=== PATIENT | male | born 1970 | race Caucasian/White ===

== ENCOUNTER → 2020-03-11 | Outpatient (CLI) | payer MEDICARE ==
--- NOTE | 2020-03-11 11:36 | ECHOS ---
STRESS ECHOCARDIOGRAM LUMASON: 2 Vial INDICATIONS: MEDICATIONS: Sertaline, Losartan, Synthroid, Metoprolol, Metformin, Buspirone, ASA BASELINE HEART RATE: 63 BASELINE BLOOD PRESSURE: 124/70 MAXIMUM HEART RATE: 139 MAXIMUM BLOOD PRESSURE: 215/69 85% MPHR: 145 100% MPHR: 170 METS: MAXIMUM STAGE REACHED: 4 TOTAL EXERCISE TIME: 9:13 CLINICAL INFORMATION: History of diabetes and hypertension referred for an exercise stress echo. Baseline heart rate 63 beats per minute. Baseline blood pressure 124/70 mmHg. Baseline 12-lead ECG shows normal sinus rhythm, normal cardiac intervals, normal ST segments. Patient exercised on a Prabhjot protocol for 9 minutes 13 seconds achieving a peak heart rate of 139 beats per minute. Hypertensive response to exercise. Peak blood pressure 206/99 mmHg. Occasional PVCs and occasional ventricular couplets noted during stress testing. There was no ECG evidence for ischemia. No sustained or nonsustained arrhythmias noted. The baseline 2D echo images were suboptimal and Definity contrast was used to delay the LV endocardial borders. At baseline, there was normal LV size and systolic function noted. At peak exercise, there was excellent augmentation of overall LV contractility without developing any wall motion abnormalities. At recovery, regional global LV systolic function remained normal. IMPRESSION: Good exercise capacity. No ECG or echocardiographic evidence for ischemia. MMODL / IJN: [id number] /
== END | disposition home or self-care (01) ==
LOC: RADNMMAIN 09:07
PROVIDERS: ATTEND Internal Medicine
DX: I20.8 Other forms of angina pectoris (principal)
CPT/HCPCS: C8930; Q9950; 93351

== ENCOUNTER → 2024-05-17 | Outpatient (CLI) | payer MEDICARE ==
--- NOTE | 2024-05-17 17:48 | CA ---
Transthoracic Echo Report Name: Bishnu Fagan Age: 53 Gender: M : 1970 Exam Date: 05/17/2024 13:35 Exam Location: [facility] Ht (in): 72 Wt (lb): 310 Ordering Physician: Karri Teague MD Attending/Referring Phys: Karri Teague MD Yarn Weigher Nicki Kang YANA Procedure CPT: Indications: I34.0 NONRHEUMATIC MITRAL (VALVE) INSUFFICIENCY Cardiac Hx: Technical Quality: Very technically difficult study Contrast 1: Definity Total Dose (mL): 2 Contrast 2: Total Dose (mL): MEASUREMENTS (Male / Female) Normal Values 2D ECHO LVOT Diameter 2.4 cm LV Diastolic Volume MOD 4C 134.1 cm??? LV Systolic Volume MOD 4C 44.1 cm??? LV Ejection Fraction MOD 4C 67.1 % LV Cardiac Index MOD 4C 2271.7 cm???/min???m??? LV Diastolic Length 4C 9.2 cm LV Systolic Length 4C 6.7 cm LV Diastolic Volume MOD 2C 77.2 cm??? LV Diastolic Length 2C 8.0 cm LA Volume 63.1 cm??? 18 - 58 / 22 - 52 cm??? LA Volume Index 23.1 cm???/m??? 16 - 28 cm???/m??? Ascending Aorta Diameter 3.3 cm DOPPLER AV Peak Velocity 99.1 cm/s AV Peak Gradient 3.9 mmHg AV Mean Velocity 60.7 cm/s AV Mean Gradient 1.8 mmHg AV Velocity Time Integral 17.5 cm LVOT Peak Velocity 94.2 cm/s LVOT Peak Gradient 3.5 mmHg LVOT Velocity Time Integral 17.6 cm LVOT Stroke Volume 78.6 cm??? LVOT Stroke Volume Index 30.6 ml/m??? LVOT Cardiac Index 1984.0 cm???/min???m??? AV Area Cont Eq vti 4.5 cm??? AV Area Cont Eq pk 4.2 cm??? MV Area PHT 3.0 cm??? Mitral E Point Velocity 55.6 cm/s Mitral A Point Velocity 93.1 cm/s Mitral E to A Ratio 0.6 MV Deceleration Time 256.4 ms TR Peak Velocity 250.1 cm/s TR Peak Gradient 25.0 mmHg Right Atrial Pressure 5.0 mmHg Pulmonary Artery Systolic Pressu 30.0 mmHg Right Ventricular Systolic Press 30.0 mmHg PV Peak Velocity 95.6 cm/s PV Peak Gradient 3.7 mmHg FINDINGS Left Ventricle Left ventricular ejection fraction is estimated at 55 to 60 %. No obvious regional wall motion abnormalities. Left ventricular cavity size normal. Right Ventricle Right ventricle not well visualized. Right ventricular systolic pressure within normal limits. Right Atrium Right atrium not well visualized. Left Atrium Mildly increased left atrial volume. Mitral Valve Structurally normal mitral valve. No mitral stenosis, regurgitation or prolapse. Aortic Valve Aortic valve not well visualized. No aortic valve stenosis or regurgitation. Tricuspid Valve Structurally normal tricuspid valve. No tricuspid stenosis. Mild tricuspid regurgitation. Pulmonic Valve Pulmonic valve not well visualized. No pulmonic regurgitation. No pulmonic stenosis. Pericardium No pericardial effusion. Aorta Normal size aortic root and proximal ascending aorta. CONCLUSIONS Technically difficult study. Definity ECHO contrast used for improved visualization of the endocardial borders (inadequate visualization of two or more contiguous segments). Normal left ventricular size and systolic function Very limited Doppler study, no conclusion could be made. Previewed by: Dr. Lo Marie MD (Electronically Signed) Final Date: 17 May 2024 17:47
== END | disposition home or self-care (01) ==
LOC: RADECHMAIN 13:25
PROVIDERS: ATTEND Internal Medicine
DX: I34.0 Nonrheumatic mitral (valve) insufficiency (principal)
CPT/HCPCS: 93306

== ENCOUNTER → 2024-07-02 | Outpatient (CLI) | payer MEDICARE ==
--- NOTE | 2024-07-02 14:15 | US ---
EXAMINATION TYPE: US carotid duplex BILAT DATE OF EXAM: 07/02/2024 COMPARISON: NONE CLINICAL INDICATION: Male, 53 years old with history of I65.23 OCCLUSION AND STENOSIS OF BILATERAL CA ROTID; No HTN. TECHNIQUE: Grayscale, color Doppler and spectral Doppler evaluation of the bilateral carotid systems and vertebral arteries. Indirect Doppler criteria was utilized. FINDINGS: EXAM MEASUREMENTS: RIGHT: Peak Systolic Velocity (PSV) cm/sec ----- Right CCA: 113.4 ----- Right ICA: 108.1 ----- Right ECA: 139.8 ICA/CCA ratio: 1.0 RIGHT: End Diastole cm/sec ----- Right CCA: 18.9 ----- Right ICA: 17.6 ----- Right ECA: 23.5 LEFT: Peak Systolic Velocity (PSV) cm/sec ----- Left CCA: 122.1 ----- Left ICA: 89.7 ----- Left ECA: 123.7 ICA/CCA ratio: 0.7 LEFT: End Diastole cm/sec ----- Left CCA: 20.4 ----- Left ICA: 24.8 ----- Left ECA: 17.1 VERTEBRALS (direction of flow): Right Vertebral: Antegrade Left Vertebral: Antegrade Rhythm: Normal MANAGER PAYMENT NOTES: No plaque or wall thickening. Color Doppler imaging shows patency with blood flow throughout the carotid artery. Spectral waveforms are within normal limits. IMPRESSION: No ultrasound evidence for hemodynamically significant stenosis of the bilateral visualized carotid a rterial systems. Criteria for Assigning % of Stenosis / Diameter reduction (Estimation based on the indirect measurements of the internal carotid artery velocities (ICA PSV). 1. Normal (no stenosis)=ICA PSV < 125 cm/s: ratio < 2.0: ICA EDV<40 cm/s. 2. Less than 50% stenosis=ICA PSV < 125 cm/s: ratio < 2.0: ICA EDV<40 cm/s. 3. 50 to 69% stenosis=ICA PSV of 125 to 230 cm/s: ration 2.0 ? 4.0: ICA EDV 40-100 cm/s. 4. Greater than 70% stenosis to near occlusion= ICA PSV > 230 cm/s: ratio > 4.0: ICA EDV > 100 cm/s. 5. Near occlusion= ICA PSV velocities may be low or undetectable: variable ratio and ICA EDV. 6. Total occlusion=unable to detect flow. [facility], , 07/02/2024 2:13 PM
== END | disposition home or self-care (01) ==
LOC: RADUSWWP 13:35
PROVIDERS: ATTEND Internal Medicine
DX: I34.0 Nonrheumatic mitral (valve) insufficiency (principal); I65.23 Occlusion and stenosis of bilateral carotid arteries
CPT/HCPCS: 93880

== ENCOUNTER → 2024-11-18 | Outpatient (CLI) | payer MEDICARE ==
--- NOTE | 2024-11-18 09:47 | XR ---
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 COMPARISON: None. FINDINGS: There are 5 lumbar type vertebral bodies identified. The lumbar spine shows satisfactory alignment w ithout evidence of acute fracture or dislocation. Vertebral body heights are within normal limits. Mi ld multilevel disc space narrowing with endplate sclerosis. Anterior osteophytosis at L5-S1. Facet ar thropathy at L5-S1. There are 2 transverse oriented screws involving the left SI joint. The overlyin g soft tissue appears unremarkable. IVC filter identified. IMPRESSION: 1. No acute fracture or dislocation is seen in the lumbar spine. 2. Mild multilevel degenerative disc disease. Most pronounced at L5-S1. [facility], , 11/18/2024 9:45 AM
== END | disposition home or self-care (01) ==
LOC: RADXRMAIN 09:27
PROVIDERS: ATTEND Internal Medicine
DX: M47.16 Other spondylosis with myelopathy, lumbar region (principal); M51.06 Intervertebral disc disorders with myelopathy, lumbar region
CPT/HCPCS: 72100